=== PATIENT | male | born 1950 | race Caucasian/White ===

== ENCOUNTER 2017-09-05 13:28 | Inpatient (IN) | payer MEDICARE, MEDICAID ==
[~2017-09-05] VITALS: Ht 172.7 cm; Wt 81.8 kg
[2017-09-05 13:58] LABS: BASOPHILS % (AUTO) 0.3 % (0-1); EOSINOPHILS # (AUTO) 0.2 X10'3 (0-0.9); EOSINOPHILS % (AUTO) 2.1 % (0-6); HEMATOCRIT 39.5 % (42.0-52.0); HEMOGLOBIN 13.7 g/dl (14.0-17.9); LYMPHOCYTES # (AUTO) 1.7 X10'3 (1.1-4.8); LYMPHOCYTES % (AUTO) 21.3 % (21-51); MEAN CORPUSCULAR HEMOGLOBIN 30.9 PG (27.0-31.0); MEAN CORPUSCULAR HGB CONC 34.7 % (33.0-36.5); MEAN CORPUSCULAR VOLUME 89.1 FL (78-98); MEAN PLATELET VOLUME 8.8 FL (7.4-10.4); MONOCYTES # (AUTO) 0.6 X10'3 (0-0.9); MONOCYTES % (AUTO) 7.1 % (2-12); NEUTROPHILS # (AUTO) 5.4 X10'3 (1.8-7.7); NEUTROPHILS % (AUTO) 69.2 % (42-75); PLATELET COUNT 235 X10'3 (140-440); RED BLOOD COUNT 4.43 X10'6 (4.70-6.10); RED CELL DISTRIBUTION WIDTH 13.2 % (11.5-14.5); WHITE BLOOD COUNT 7.8 X10'3 (4.5-11.0)
[2017-09-05 14:08] LABS: PARTIAL THROMBOPLASTIN TIME 25 SECONDS (22-32); PROTHROMBIN TIME 10.1 SECONDS (9.0-12.0)
[2017-09-05 14:15] LABS: ALANINE AMINOTRANSFERASE 23 U/L (12-78); ALBUMIN 4.1 G/DL (3.4-5.0); ALBUMIN/GLOBULIN RATIO 1.1 (1.1-1.5); ALKALINE PHOSPHATASE 70 IU/L (46-116); ANION GAP 7 (8-16); ASPARTATE AMINO TRANSFERASE 16 U/L (10-37); BILIRUBIN,TOTAL 0.3 MG/DL (0.1-1.0); BLOOD UREA NITROGEN 17 MG/DL (7-18); BUN/CREATININE RATIO 19.5 (5.4-32.0); CALCIUM 9.1 MG/DL (8.5-10.1); CHLORIDE 104 MMOL/L (99-107); CREATININE 0.87 MG/DL (0.60-1.10); GLUCOSE 109 MG/DL (70-104); POTASSIUM 4.1 MMOL/L (3.5-5.1); SODIUM 143 MMOL/L (135-145); TOTAL CARBON DIOXIDE 32.5 MMOL/L (24-32); TOTAL PROTEIN 7.8 G/DL (6.4-8.2); eGFR 87 ML/MIN
[2017-09-05] MEDS ORDERED: aspirin 325mg tablet PO ONE (17:05)
[2017-09-05] MEDS: normal saline 1000ml 1,000 ML IV SCH (20:12)
[2017-09-05] MEDS ORDERED: acetaminophen 325mg tablet PO PRN ×2 (20:15)
[2017-09-05] MEDS ORDERED: ondansetron/PF 4mg/2ml inj IV PRN (20:15)
[2017-09-05] MEDS ORDERED: meclizine 12.5mg tablet PO PRN (20:35)
[2017-09-05 20:47] LABS: HEMOGLOBIN A1C 6.2 % (4.5-6.2)
[2017-09-05 22:00] VITALS: BP_SYST 130; BP_SYST 135; BP_SYST 143; BP_DIAS 74; BP_DIAS 75; BP_DIAS 79
[2017-09-06 02:00] VITALS: BP 138/84
[2017-09-06 02:46] LABS: BASOPHILS % (AUTO) 0.4 % (0-1); EOSINOPHILS # (AUTO) 0.2 X10'3 (0-0.9); EOSINOPHILS % (AUTO) 2.5 % (0-6); HEMATOCRIT 37.4 % (42.0-52.0); HEMOGLOBIN 12.8 g/dl (14.0-17.9); LYMPHOCYTES # (AUTO) 1.5 X10'3 (1.1-4.8); LYMPHOCYTES % (AUTO) 22.6 % (21-51); MEAN CORPUSCULAR HEMOGLOBIN 30.5 PG (27.0-31.0); MEAN CORPUSCULAR HGB CONC 34.1 % (33.0-36.5); MEAN CORPUSCULAR VOLUME 89.3 FL (78-98); MEAN PLATELET VOLUME 8.9 FL (7.4-10.4); MONOCYTES # (AUTO) 0.5 X10'3 (0-0.9); MONOCYTES % (AUTO) 7.7 % (2-12); NEUTROPHILS # (AUTO) 4.4 X10'3 (1.8-7.7); NEUTROPHILS % (AUTO) 66.8 % (42-75); PLATELET COUNT 195 X10'3 (140-440); RED BLOOD COUNT 4.19 X10'6 (4.70-6.10); RED CELL DISTRIBUTION WIDTH 12.5 % (11.5-14.5); WHITE BLOOD COUNT 6.6 X10'3 (4.5-11.0)
[2017-09-06 02:56] LABS: ALBUMIN 3.4 G/DL (3.4-5.0); ANION GAP 7 (8-16); BLOOD UREA NITROGEN 19 MG/DL (7-18); BUN/CREATININE RATIO 24.4 (5.4-32.0); CHLORIDE 108 MMOL/L (99-107); CHOL/HDL RATIO 3.5 (0.00-4.99); CHOLESTEROL 195 MG/DL (0-200); CREATININE 0.78 MG/DL (0.60-1.10); GLUCOSE 121 MG/DL (70-104); HDL CHOLESTEROL 55 MG/DL (35-60); LDL CHOLESTEROL 108 MG/DL (50-100); POTASSIUM 3.8 MMOL/L (3.5-5.1); SODIUM 142 MMOL/L (135-145); TOTAL CARBON DIOXIDE 26.9 MMOL/L (24-32); TRIGLYCERIDES 247 MG/DL (20-135); eGFR > 90 ML/MIN
[2017-09-06 05:00] VITALS: BP 120/82
[2017-09-06 08:00] VITALS: BP_SYST 137; BP_SYST 138; BP_SYST 145; BP_DIAS 78; BP_DIAS 80; BP_DIAS 85
[2017-09-06] MEDS ORDERED: aspirin 325mg tablet PO SCH (08:00)
[2017-09-06] MEDS ORDERED: enoxaparin 40mg/0.4ml syringe SQ SCH (08:00)
[2017-09-06] MEDS ORDERED: atorvastatin 20mg tablet PO SCH (08:00)
[2017-09-06] MEDS ORDERED: LORazepam 2 mg/ml vial IV PRN (09:40)
[2017-09-06 10:00] VITALS: BP 137/80
[2017-09-06] MEDS: normal saline 1000ml 1,000 ML IV SCH (13:14)
[2017-09-06] MEDS ORDERED: ATOR20TA66 PO (15:35)
[2017-09-06] MEDS ORDERED: ASPI81TA52 PO (15:35)
== END 2017-09-06 16:10 | disposition home or self-care (01) | DRG 69 ==
LOC: ER 13:29 → ED HOLD 20:12 → ORTHO 4S 22:00 → CMPBEDREQ 22:38
PROVIDERS: ADMIT Family Medicine; ATTEND Family Medicine
DX: G45.9 Transient cerebral ischemic attack, unspecified (principal); I48.0 Paroxysmal atrial fibrillation; I10 Essential (primary) hypertension; J32.0 Chronic maxillary sinusitis; Z60.2 Problems related to living alone; I25.2 Old myocardial infarction; Z79.82 Long term (current) use of aspirin
CPT/HCPCS: 36415; 70450; 70544; 70551; 71045; 80048; 80053; 80061; 83036; 84484; 85025; 85610; 85730; 87070; 93005; 93306; 93880; 97116; 97161; 97530; J1650; J2060; J7030

== ENCOUNTER 2018-06-26 16:50 | Emergency (ER) | payer MEDICARE, MEDICAID ==
[~2018-06-26] VITALS: Ht 172.7 cm; Wt 79.0 kg
[~2018-06-26 16:50] MED LIST: ASPI81TA52 PO; ATOR20TA66 PO
[2018-06-26 17:03] VITALS: BP 146/79
[2018-06-26] MEDS ORDERED: ACET1TAB12 PO (17:47)
[2018-06-26] MEDS ORDERED: CLIN300C85 PO (17:47)
== END 2018-06-26 18:00 | disposition home or self-care (01) ==
LOC: ER 16:51
DX: K08.89 Other specified disorders of teeth and supporting structures (principal); I10 Essential (primary) hypertension; I48.91 Unspecified atrial fibrillation; I25.2 Old myocardial infarction; Z79.82 Long term (current) use of aspirin; Z79.2 Long term (current) use of antibiotics; Z79.899 Other long term (current) drug therapy; Z60.2 Problems related to living alone; Z59.0 Homelessness
CPT/HCPCS: 99283

== ENCOUNTER 2019-08-08 21:06 | Observation (INO) | payer MEDICARE, MEDICAID ==
[~2019-08-08] VITALS: Ht 172.7 cm; Wt 81.8 kg
[~2019-08-08 21:06] MED LIST changes: +ACET1TAB12 PO; +CLIN-90 PO
[2019-08-08 21:32] LABS: BASOPHILS % (AUTO) 0.4 % (0-1); EOSINOPHILS # (AUTO) 0.1 X10'3 (0-0.9); EOSINOPHILS % (AUTO) 0.7 % (0-6); HEMATOCRIT 39.9 % (42.0-52.0); LYMPHOCYTES # (AUTO) 0.6 X10'3 (1.1-4.8); LYMPHOCYTES % (AUTO) 7.3 % (21-51); MEAN CORPUSCULAR HEMOGLOBIN 30.6 PG (27.0-31.0); MEAN CORPUSCULAR VOLUME 87.5 FL (78-98); MEAN PLATELET VOLUME 8.4 FL (7.4-10.4); MONOCYTES # (AUTO) 0.7 X10'3 (0-0.9); MONOCYTES % (AUTO) 8.5 % (2-12); NEUTROPHILS # (AUTO) 6.9 X10'3 (1.8-7.7); NEUTROPHILS % (AUTO) 83.1 % (42-75); PLATELET COUNT 203 X10'3 (140-440); RED BLOOD COUNT 4.57 X10'6 (4.70-6.10); RED CELL DISTRIBUTION WIDTH 12.6 % (11.5-14.5); WHITE BLOOD COUNT 8.3 X10'3 (4.5-11.0)
[2019-08-08] MEDS ORDERED: acetaminophen 325mg tablet PO ONE (21:35)
[2019-08-08] MEDS ORDERED: normal saline 1000ml 1,000 ML IV ONE (21:35)
--- NOTE | 2019-08-08 21:40 | NUR ---
VASC CALLED BACK AT 21:40 BE RIGHT IN
[2019-08-08 21:46] LABS: ALANINE AMINOTRANSFERASE 32 U/L (12-78); ALBUMIN 3.8 G/DL (3.4-5.0); ALBUMIN/GLOBULIN RATIO 1.1 (1.1-1.5); ALKALINE PHOSPHATASE 60 IU/L (46-116); ANION GAP 7 (8-16); ASPARTATE AMINO TRANSFERASE 24 U/L (10-37); BILIRUBIN,TOTAL 0.5 MG/DL (0.1-1.0); BLOOD UREA NITROGEN 14 MG/DL (7-18); BUN/CREATININE RATIO 14.6 (5.4-32.0); CALCIUM 8.6 MG/DL (8.5-10.1); CHLORIDE 100 MMOL/L (99-107); CREATININE 0.96 MG/DL (0.60-1.10); GLUCOSE 143 MG/DL (70-104); POTASSIUM 3.5 MMOL/L (3.5-5.1); SODIUM 132 MMOL/L (135-145); TOTAL CARBON DIOXIDE 24.9 MMOL/L (24-32); TOTAL PROTEIN 7.4 G/DL (6.4-8.2); eGFR 77 ML/MIN
[2019-08-08 21:49] LABS: MAGNESIUM 1.7 MG/DL (1.5-2.4)
[2019-08-08] MEDS ORDERED: iohexol 350MG/ML 100ml bottle IV ONE (21:49)
[2019-08-08] MEDS ORDERED: NITR0.4T48 SL (23:32)
[2019-08-08] MEDS ORDERED: METO25TA6 PO (23:32)
[2019-08-09] MEDS ORDERED: acetaminophen 325mg tablet PO ONE (00:40)
[2019-08-09] MEDS ORDERED: mag hydrox/Alum hydrox/simeth 30ml oral suspension PO PRN (00:45)
[2019-08-09] MEDS ORDERED: acetaminophen 325mg tablet PO PRN (00:45)
[2019-08-09] MEDS ORDERED: ondansetron/PF 4mg/2ml inj IV PRN (00:45)
[2019-08-09] MEDS ORDERED: magnesium hydroxide 30ml (MOM) UD suspension PO PRN (00:45)
[2019-08-09] MEDS ORDERED: HYDROcodone/acetaminophen 5mg/325mg tablet PO PRN (00:45)
[2019-08-09 01:30] VITALS: BP 133/82
--- NOTE | 2019-08-09 01:30 | NUR ---
Received report from Ange SIMMONS pt arrived from ED and ambulated to bed.
[2019-08-09 02:27] LABS: CLARITY,URINE CLEAR (Clear); COLOR,URINE YELLOW (Yellow); GLUCOSE, URINE NEGATIVE (Neg); KETONES,URINE NEGATIVE (Neg); LEUKOCYTE ESTERASE ,URINE NEGATIVE (Neg); NITRITES, URINE NEGATIVE (Neg); OCCULT BLOOD,URINE NEGATIVE (Neg); PROTEIN,URINE NEGATIVE (Neg); UROBILINOGEN,URINE 0.2 E.U/dL (0.2-1.0)
[2019-08-09 02:30] LABS: UA COLLECTION TYPE CLN CATCH MIDSTREAM
[2019-08-09 06:00] VITALS: BP 150/94
--- NOTE | 2019-08-09 06:12 | NUR ---
Problems reprioritized. Patient report given, questions answered & plan of care reviewed with Kristie SIMMONS.
--- NOTE | 2019-08-09 06:15 | NUR ---
Patient in room PCU 3017. I have received report from TROY Verduzco and had the opportunity to ask questions and assume patient care.
[2019-08-09] MEDS: metoprolol tartrate 50mg tablet PO SCH ×2 (08:02→19:57)
[2019-08-09] MEDS: aspirin 81mg tablet.DR PO SCH (08:03)
[2019-08-09] MEDS: heparin, porcine 5000 units/ml vial SQ SCH ×2 (08:03→19:56)
[2019-08-09] MEDS ORDERED: atorvastatin 20mg tablet PO SCH ×2 (08:50→20:00)
[2019-08-09] MEDS ORDERED: metoprolol tartrate 1mg/ml inj IV PRN (09:55)
[2019-08-09] MEDS ORDERED: aminophylline 250mg/10ml inj. IV PRN (09:55)
[2019-08-09] MEDS ORDERED: nitroGLYCERIN 0.4mg SUBLingual tab SL PRN (09:55)
[2019-08-09] MEDS ORDERED: regadenoson 0.4mg/5ml syringe IV PRN (09:55)
[2019-08-09 11:00] VITALS: BP 139/80
--- NOTE | 2019-08-09 11:38 | NUR ---
[facility] med called to schedule pt and can not do lexiscan today r/t pt had coffe at breakfast. Will plan to be NPO after midnight and do test in am
[2019-08-09 18:00] VITALS: BP 165/89
--- NOTE | 2019-08-09 18:30 | NUR ---
Patient in room PCU 3017. I have received report from Kristie SIMMONS and had the opportunity to ask questions and assume patient care.
--- NOTE | 2019-08-09 18:32 | NUR ---
Problems reprioritized. Patient report given, questions answered & plan of care reviewed with Abhi Verduzco.
[2019-08-09 22:00] VITALS: BP 142/90
[2019-08-10] VITALS (7 sets, daily range): BP systolic 121–156; BP diastolic 61–89
[2019-08-10 06:14] LABS: BASOPHILS % (AUTO) 0.6 % (0-1); EOSINOPHILS # (AUTO) 0.1 X10'3 (0-0.9); EOSINOPHILS % (AUTO) 1.6 % (0-6); HEMATOCRIT 42.2 % (42.0-52.0); HEMOGLOBIN 14.4 g/dl (14.0-17.9); LYMPHOCYTES # (AUTO) 1.6 X10'3 (1.1-4.8); LYMPHOCYTES % (AUTO) 21.2 % (21-51); MEAN CORPUSCULAR HEMOGLOBIN 30.2 PG (27.0-31.0); MEAN CORPUSCULAR HGB CONC 34.2 g/dL (33.0-36.5); MEAN CORPUSCULAR VOLUME 88.1 FL (78-98); MEAN PLATELET VOLUME 8.8 FL (7.4-10.4); MONOCYTES # (AUTO) 1.1 X10'3 (0-0.9); MONOCYTES % (AUTO) 14.6 % (2-12); NEUTROPHILS # (AUTO) 4.7 X10'3 (1.8-7.7); PLATELET COUNT 208 X10'3 (140-440); RED BLOOD COUNT 4.79 X10'6 (4.70-6.10); WHITE BLOOD COUNT 7.6 X10'3 (4.5-11.0)
--- NOTE | 2019-08-10 06:27 | NUR ---
Problems reprioritized. Patient report given, questions answered & plan of care reviewed with Vesta SIMMONS.
[2019-08-10 06:28] LABS: ALANINE AMINOTRANSFERASE 34 U/L (12-78); ALBUMIN 3.6 G/DL (3.4-5.0); ALBUMIN/GLOBULIN RATIO 0.9 (1.1-1.5); ALKALINE PHOSPHATASE 56 IU/L (46-116); ANION GAP 8 (8-16); ASPARTATE AMINO TRANSFERASE 28 U/L (10-37); BILIRUBIN,TOTAL 0.5 MG/DL (0.1-1.0); BLOOD UREA NITROGEN 12 MG/DL (7-18); BUN/CREATININE RATIO 11.8 (5.4-32.0); CALCIUM 8.8 MG/DL (8.5-10.1); CHLORIDE 104 MMOL/L (99-107); CREATININE 1.02 MG/DL (0.60-1.10); GLUCOSE 112 MG/DL (70-104); POTASSIUM 3.9 MMOL/L (3.5-5.1); SODIUM 140 MMOL/L (135-145); TOTAL CARBON DIOXIDE 28.3 MMOL/L (24-32); TOTAL PROTEIN 7.5 G/DL (6.4-8.2); eGFR 72 ML/MIN
--- NOTE | 2019-08-10 06:32 | NUR ---
Patient in room PCU 3017. I have received report from Dax SIMMONS and had the opportunity to ask questions and assume patient care.
[2019-08-10] MEDS: metoprolol tartrate 50mg tablet PO SCH (08:00)
[2019-08-10] MEDS: heparin, porcine 5000 units/ml vial SQ SCH (08:09)
[2019-08-10] MEDS: aspirin 81mg tablet.DR PO SCH (08:09)
[2019-08-10] MEDS ORDERED: HYDROcodone/acetaminophen 5mg/325mg tablet PO PRN (09:55)
[2019-08-10] MEDS ORDERED: aminophylline 250mg/10ml inj. IV PRN (11:15)
[2019-08-10] MEDS ORDERED: regadenoson 0.4mg/5ml syringe IV PRN (11:15)
[2019-08-10] MEDS ORDERED: IBUP-1984 PO (13:48)
--- NOTE | 2019-08-10 14:36 | NUR ---
Patient has been asymptomatic today, sudha was negative. Pt. was seen by Dr. Montes De Oca who cleared patient to discharge. All medications and discharge instructions reviewed with patient. Patient stated he does not have a primary physican but stated he plans to call around tomorrow. PIV DC'd without incident. Pt. tolerated well. Tele removed. Patient ate prior to discharge and left in stable condition.
--- NOTE | 2019-08-11 15:07 | NUR ---
Case management DC follow up: LM/VM asking pt to rtn call w/any questions/concerns, status post DC
== END 2019-08-10 14:40 | disposition home or self-care (01) ==
LOC: ER 21:06 → ED HOLD 08-09 00:47 → PCU 3S 08-09 01:20
PROVIDERS: ADMIT Internal Medicine; ATTEND Internal Medicine
DX: I25.119 Atherosclerotic heart disease of native coronary artery with unspecified angina pectoris (principal); I24.9 Acute ischemic heart disease, unspecified; I25.2 Old myocardial infarction; R61 Generalized hyperhidrosis; R06.02 Shortness of breath; R11.2 Nausea with vomiting, unspecified; I48.91 Unspecified atrial fibrillation; I10 Essential (primary) hypertension; Z86.73 Personal history of transient ischemic attack (TIA), and cerebral infarction without residual deficits; Z79.82 Long term (current) use of aspirin; Z79.899 Other long term (current) drug therapy
CPT/HCPCS: 36415; 71045; 71275; 78452; 80053; 81003; 83735; 84484; 85025; 87081; 93005; 93017; 93306; 93971; 96360; 96372; 99284; A9500; G0378; J0280; J1644; J2785; Q9967

== ENCOUNTER 2021-08-22 12:15 | Emergency (ER) | payer BC, MEDICAID ==
[~2021-08-22] VITALS: Ht 172.7 cm; Wt 90.0 kg
[~2021-08-22 12:15] MED LIST changes: -ACET1TAB12 PO; -CLIN-90 PO; +LOP25T PO; +NITR0.4T48 SL
[2021-08-22 12:40] VITALS: BP 171/104
[2021-08-22] MEDS ORDERED: oxymetazoline 15 ML nasal spray NS ONE (13:00)
[2021-08-22] MEDS ORDERED: LIDOcaine 1.5% w/epinephrine 1:200,000 5ml ampul IJ ONE (13:00)
[2021-08-22] MEDS ORDERED: tranexamic acid 100mg/ml inj. TP ONE (13:00)
[2021-08-22] MEDS ORDERED: cloNIDine 0.1 mg tablet PO ONE (13:10)
== END 2021-08-22 14:10 | disposition home or self-care (01) ==
LOC: ER 12:15
DX: R04.0 Epistaxis (principal); I48.91 Unspecified atrial fibrillation; I10 Essential (primary) hypertension; I25.2 Old myocardial infarction; Z79.01 Long term (current) use of anticoagulants; Z79.82 Long term (current) use of aspirin; Z79.899 Other long term (current) drug therapy
CPT/HCPCS: 99284; J3490; 99283

== ENCOUNTER 2021-08-22 23:23 | Emergency (ER) | payer BC, MEDICAID ==
[~2021-08-22] VITALS: Ht 172.7 cm; Wt 86.4 kg
[2021-08-22] MEDS ORDERED: ondansetron 4mg rapidly disintigrating tab PO ONE (23:50)
[2021-08-23 00:24] LABS: CLARITY,URINE CLEAR (Clear); COLOR,URINE YELLOW (Yellow); GLUCOSE, URINE 500 mg/dl (Neg); KETONES,URINE NEGATIVE (Neg); LEUKOCYTE ESTERASE ,URINE NEGATIVE (Neg); NITRITES, URINE NEGATIVE (Neg); OCCULT BLOOD,URINE NEGATIVE (Neg); PROTEIN,URINE NEGATIVE (Neg); UROBILINOGEN,URINE 0.2 E.U/dL (0.2-1.0)
[2021-08-23 00:32] LABS: UA COLLECTION TYPE STRAIGHT CATH
[2021-08-23 00:49] LABS: BASOPHILS # (AUTO) 0.1 X10'3 (0-0.2); BASOPHILS % (AUTO) 0.6 % (0-1); EOSINOPHILS # (AUTO) 0.1 X10'3 (0-0.9); EOSINOPHILS % (AUTO) 0.9 % (0-6); HEMOGLOBIN 14.2 g/dl (14.0-17.9); LYMPHOCYTES # (AUTO) 1.3 X10'3 (1.1-4.8); LYMPHOCYTES % (AUTO) 13.9 % (21-51); MEAN CORPUSCULAR HEMOGLOBIN 30.7 PG (27.0-31.0); MEAN CORPUSCULAR HGB CONC 34.7 g/dL (33.0-36.5); MEAN CORPUSCULAR VOLUME 88.7 FL (78-98); MEAN PLATELET VOLUME 8.8 FL (7.4-10.4); MONOCYTES # (AUTO) 0.7 X10'3 (0-0.9); MONOCYTES % (AUTO) 7.2 % (2-12); NEUTROPHILS # (AUTO) 7.4 X10'3 (1.8-7.7); NEUTROPHILS % (AUTO) 77.4 % (42-75); PLATELET COUNT 237 X10'3 (140-440); RED BLOOD COUNT 4.62 X10'6 (4.70-6.10); RED CELL DISTRIBUTION WIDTH 12.7 % (11.5-14.5); WHITE BLOOD COUNT 9.5 X10'3 (4.5-11.0)
[2021-08-23 01:02] LABS: ALANINE AMINOTRANSFERASE 44 U/L (12-78); ALBUMIN 3.7 G/DL (3.4-5.0); ALBUMIN/GLOBULIN RATIO 0.9 (1.1-1.5); ALKALINE PHOSPHATASE 64 IU/L (46-116); ANION GAP 10 (8-16); ASPARTATE AMINO TRANSFERASE 32 U/L (10-37); BILIRUBIN,TOTAL 0.5 MG/DL (0.1-1.0); BLOOD UREA NITROGEN 15 MG/DL (7-18); BUN/CREATININE RATIO 16.5 (5.4-32.0); CALCIUM 9.8 MG/DL (8.5-10.1); CHLORIDE 101 MMOL/L (99-107); CREATININE 0.91 MG/DL (0.60-1.10); GLUCOSE 227 MG/DL (70-104); LIPASE < 50 U/L (73-393); POTASSIUM 3.7 MMOL/L (3.5-5.1); SODIUM 136 MMOL/L (135-145); TOTAL CARBON DIOXIDE 25.4 MMOL/L (24-32); TOTAL PROTEIN 7.8 G/DL (6.4-8.2); eGFR 82 ML/MIN
[2021-08-23 01:39] VITALS: BP 149/87
== END 2021-08-23 01:55 | disposition home or self-care (01) ==
LOC: ER 23:24
DX: R11.0 Nausea (principal); R04.0 Epistaxis; R33.9 Retention of urine, unspecified; K59.00 Constipation, unspecified; I48.91 Unspecified atrial fibrillation; I10 Essential (primary) hypertension; I25.2 Old myocardial infarction; Z79.82 Long term (current) use of aspirin; Z79.899 Other long term (current) drug therapy
CPT/HCPCS: 36415; 80053; 81003; 83690; 85025; 99284

== ENCOUNTER 2024-08-04 21:40 | Emergency (ER) | payer BC, MEDICAID ==
[~2024-08-04] VITALS: Ht 172.7 cm; Wt 85.0 kg
[2024-08-04 21:43] VITALS: TEMP 98.6
[2024-08-04 22:01] LABS: BASOPHILS % (AUTO) 0.7 % (0-1); EOSINOPHILS # (AUTO) 0.2 X10'3 (0-0.9); EOSINOPHILS % (AUTO) 2.6 % (0-6); HEMATOCRIT 42.9 % (42.0-52.0); LYMPHOCYTES # (AUTO) 2.3 X10'3 (1.1-4.8); MEAN CORPUSCULAR HEMOGLOBIN 31.3 PG (27.0-31.0); MEAN CORPUSCULAR VOLUME 89.4 FL (78-98); MEAN PLATELET VOLUME 8.5 FL (7.4-10.4); MONOCYTES # (AUTO) 0.7 X10'3 (0-0.9); MONOCYTES % (AUTO) 9.2 % (2-12); NEUTROPHILS # (AUTO) 4.2 X10'3 (1.8-7.7); NEUTROPHILS % (AUTO) 56.5 % (42-75); PLATELET COUNT 229 X10'3 (140-440); RED BLOOD COUNT 4.79 X10'6 (4.70-6.10); RED CELL DISTRIBUTION WIDTH 12.9 % (11.5-14.5); WHITE BLOOD COUNT 7.4 X10'3 (4.5-11.0)
[2024-08-04 22:18] LABS: ALANINE AMINOTRANSFERASE 36 U/L (12-78); ALBUMIN 3.7 G/DL (3.4-5.0); ALKALINE PHOSPHATASE 68 IU/L (46-116); ANION GAP 11 (8-16); ASPARTATE AMINO TRANSFERASE 23 U/L (10-37); BILIRUBIN,TOTAL 0.5 MG/DL (0.1-1.0); BLOOD UREA NITROGEN 15 MG/DL (7-18); BUN/CREATININE RATIO 14.7 (10.0-20.0); CHLORIDE 101 MMOL/L (99-107); CREATININE 1.02 MG/DL (0.60-1.10); GLUCOSE 269 MG/DL (70-104); POTASSIUM 4.2 MMOL/L (3.5-5.1); SODIUM 138 MMOL/L (135-145); TOTAL CARBON DIOXIDE 26.1 MMOL/L (24-32); TOTAL PROTEIN 7.5 G/DL (6.4-8.2); eCRCL 61 ML/MIN; eGFR 71 ML/MIN
[2024-08-04 22:33] LABS: PRO BRAIN NATRIURETIC PEPTIDE 34 PG/ML (0-450)
[2024-08-05 00:31] VITALS: BP 161/101; PULSE 73; RESP 15; O2SAT 96
== END 2024-08-05 00:32 | disposition home or self-care (01) ==
LOC: ER 21:40
DX: R07.89 Other chest pain (principal); I48.91 Unspecified atrial fibrillation; I10 Essential (primary) hypertension; I25.2 Old myocardial infarction; I25.10 Atherosclerotic heart disease of native coronary artery without angina pectoris; Z79.82 Long term (current) use of aspirin; Z79.899 Other long term (current) drug therapy
CPT/HCPCS: 36415; 71045; 80053; 83880; 84484; 85025; 93005; 99285